=== PATIENT | male | born 2000 | race African-American/Black ===

== ENCOUNTER 2021-02-06 14:31 | Inpatient (IN) ==
--- NOTE | 2021-02-06 15:03 | Emergency Department Note ---
Impression & Plan Pneumothorax on right ED Provider Note CHIEF COMPLAINT: Right-sided chest pain, shortness of breath HISTORY OF PRESENTING ILLNESS: This is a 21-year-old male who presents to the emergency department by private vehicle with complaint of right-sided chest pain and shortness of breath that started this morning when he woke up. The patient states he felt a sharp pain in the side of his chest and then felt like it was hard to take a deep breath. He rates his pain 4/10. He has not tried anything for his symptoms. He continues to feel like there is difficulty taking a full deep breath and he has been taking shallow breaths because of this. He denies any injury to his chest and denies any falls. The patient states that he went to [facility] and they did a chest x-ray and told him that he might have a pneumothorax or a pleural effusion and sent him here for further evaluation. He denies any fevers or chills and denies any URI symptoms of cough, congestion, sore throat, or loss of taste/smell. He is vaccinated for COVID-19. He denies any known sick contacts. 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 He denies any long-term effects of this. He also notes that he smokes and vapes nicotine and marijuana on a regular basis. REVIEW OF SYSTEMS: A complete 10 point review of systems was reviewed with the patient with pertinent positives and negatives as per history of present illness. All else were negative. PAST MEDICAL HISTORY: Born premature, NICU stay, no significant medical problems or past surgical history SOCIAL HISTORY: Lives at home, he is a current everyday smoker cigarettes and vaping ALLERGIES: Reviewed in chart and with the patient PHYSICAL EXAM: CONSTITUTIONAL: Pleasant and cooperative. Nontoxic-appearing and in no acute distress. Well appearing and well nourished. HEENT: Normocephalic, atraumatic. NECK: Supple, full active range of motion without discomfort. No cervical adenopathy. RESPIRATORY: Lung sounds slightly diminished on the right compared to left, but otherwise clear to auscultation bilaterally with no wheezing, crackles, rhonchi or stridor. No tachypnea or labored breathing. No accessory muscle use. Equal expansion bilaterally. CARDIOVASCULAR: Regular rate and rhythm with no murmurs, rubs or gallops. Normal peripheral perfusion. No edema. GASTROINTESTINAL: Soft, nontender, nondistended. No palpable masses or HSM. Bowel sounds present in all quadrants. MUSCULOSKELETAL: Full range of motion of all joints without discomfort. INTEGUMENTARY: No rash or other significant dermatologic conditions noted. NEUROLOGIC: Alert and oriented X 4 with normal affect. Normal strength and sensation in all four extremities. Normal speech. Normal gait observed. ED COURSE AND MEDICAL DECISION MAKING: CC: Patient presenting with complaint of right-sided chest pain, shortness of breath DIFFERENTIAL DIAGNOSIS: Includes, but not limited to pneumothorax, bronchitis, pneumonia, pleural effusion pulmonary embolism, acute coronary syndrome, pericarditis, myocarditis, viral illness, among others. INTERPRETATION OF LABS: No leukocytosis, no anemia, normal platelets, no significant electrolyte abnormalities, normal renal function, normal liver enzymes and lipase. Troponin undetectable. COVID-19 testing negative. IMAGING: A 2 view chest x-ray was reviewed by myself and shows a moderate to large right- sided pneumothorax which measures about 3 cm of separation by my interpretation. EKG: Shows normal sinus rhythm with a rate of 70 bpm, sinus arrhythmia, early repolarization changes, no ST elevation or depression and no ectopy by my interpretation. No previous EKGs available for comparison. MEDICATION RECONCILIATION: I attest that I have personally reviewed the patient's current medication list. INITIAL VITAL SIGNS REVIEW: I reviewed the patient's initial vital signs and interpret them as follows: T: Afebrile; BP: Normotensive; HR: Within normal limits; RR: Within normal limits; Pulse Ox: Within normal limits on room air. MDM SUMMARY: Patient was evaluated in the waiting room due to large number of ED holds and long wait times. A history and physical exam performed. Patient is alert and oriented, in no acute distress, nonlabored breathing, and noted to have good oxygen saturation on room air on initial vitals. He is resting calmly in a chair. The patient was reported to have a possible pneumothorax or pleural effusion on an outside chest x-ray. Orders were placed for labs including a troponin, and EKG and a repeat chest x- ray. The patient declines anything for pain at this time. Chest x-ray was reviewed by myself, noting a moderate to large sized pneumothorax on the right. Nasal cannula oxygen was ordered for the patient while he is still in the waiting room and I spoke with the charge nurse to facilitate bringing the patient back to an exam room as soon as possible. Patient remains stable on recheck in the waiting room. Patient discussed with Dr. Guzmán, who agrees with my assessment, plan, and disposition. Labs reviewed, no acute abnormalities. Troponin negative. The patient was brought back to room D5 and placed on the cardiac/vascular sonographer. He was also placed on a nonrebreather mask. Cardiac monitoring: An order was placed for continuous cardiac monitoring. The monitor shows a rate of 80 bpm with normal sinus rhythm. Oxygen saturation remains good. I spoke on the phone with Dr. Patel, pulmonology, who recommended admitting the patient to the medicine service on telemetry and they will evaluate the patient for pigtail procedure for the pneumothorax. Spoke on the phone with Dr. Gurrola, [facility] Hospitalist, who agrees to evaluate the patient for admission. At the patient's request, I spoke on the phone with the patient's mother, Yaritza, and answered all of her questions at this time. Covid testing is negative. The pulmonology team is at bedside for pigtail placement. The patient was stable at the time of admission. CRITICAL CARE NOTE: I have personally spent greater than 35 minutes of critical care time in the direct management of this patient. This includes bedside care, interpretation of diagnostic studies, and testing, discussion with consultants, patient, and family members, and other required patient management activities. This 35 minutes is in excess of all separately billable procedures. The chart was completed utilizing [employer] voice recognition software. Grammatical errors, random word insertions, pronoun errors, and incomplete sentences are an occasional consequence of this system due to software limitations, ambient noise, and hardware issues. Any formal questions or concerns about the content, text, or information contained within the body of this dictation should be directly addressed to the nurse practitioner for clarification. Past Med/Surg History Medical History Concern about sexually transmitted disease in male without diagnosis Dysuria History of chlamydia infection History of tobacco use Marijuana use Surgical History History of nephrectomy Social History Smoking Status: Current every day smoker Tobacco Type: Cigarettes and E-cigarettes / Vaping Preferred Language: Uzbek Feels Safe at Home: Yes Allergies Allergies Allergy/AdvReac Type Severity Reaction Status Date / Time shellfish derived Allergy Severe hives, Verified 02/06/21 16:16 throat swelling Home Meds Home Medications Medication Instructions Recorded Confirmed No Known Home Medications 02/06/21 02/06/21 Results & Data (ED) Vital Signs Vital Signs - 24 hr 02/06/21 14:31 02/06/21 16:30 02/06/21 16:48 Temperature 36.8 C Temperature Source Temporal Artery Scan Pulse Rate 83 Pulse Rate [Left Finger] 70 Pulse Rhythm [Left Finger] Pulse Strength [Left Finger] Respiratory Rate 18 18 Respiratory Effort / Characteristics Respiratory Depth Blood Pressure 116/68 Blood Pressure [Left Arm] 116/75 Blood Pressure Mean 84 Blood Pressure Mean [Left Arm] 88 Blood Pressure Position [Left Arm] Pulse Oximetry 97 100 100 Oxygen Delivery Method Room Air Non-rebreather Nasal Cannula Oxygen Flow Rate 10 4 Sepsis Recent Fever Within 48 Hours No Sepsis New/Unexplained Change in Mental Status No Sepsis Action Taken by Nursing No Action Required 02/06/21 16:49 02/06/21 17:29 Temperature Temperature Source Pulse Rate Pulse Rate [Left Finger] 72 68 Pulse Rhythm [Left Finger] Regular Pulse Strength [Left Finger] Normal Respiratory Rate 18 18 Respiratory Effort / Characteristics Non-Labored Spontaneous Respiratory Depth Normal Blood Pressure Blood Pressure [Left Arm] 111/74 116/79 Blood Pressure Mean Blood Pressure Mean [Left Arm] 86 91 Blood Pressure Position [Left Arm] Lying Pulse Oximetry 100 100 Oxygen Delivery Method Nasal Cannula Non-rebreather Oxygen Flow Rate 4 Sepsis Recent Fever Within 48 Hours Sepsis New/Unexplained Change in Mental Status Sepsis Action Taken by Nursing Laboratory Data Result diagrams: 02/06/21 Unknown 02/06/21 Unknown Lab Results 02/06/21 02/06/21 02/06/21 Range/Units 16:19 Unknown Unknown WBC 8.98 (4.8-10.8) K/uL RBC 5.46 (4.7-6.1) M/uL Hgb 17.8 (14.0-18.0) g/dL Hct 51.6 (42-52) % MCV 94.5 (80-100) fL MCH 32.6 (25-34) pg MCHC 34.5 (32-36) g/dL RDW Std Deviation 42.5 (36.4-46.3) fL RDW Coeff of Emilie 12.4 (11.5-14.5) % Plt Count 190 (130-400) K/uL MPV 11.1 H (7.4-10.4) fL Immature Gran % (Auto) 0.1 % Neut % (Auto) 87.1 % Lymph % (Auto) 7.7 % [place] % (Auto) 4.2 % Eos % (Auto) 0.9 % Baso % (Auto) 0.0 % Neut # (Auto) 7.82 H (1.4-6.5) K/uL Lymph # (Auto) 0.69 L (1.2-3.4) K/uL [place] # (Auto) 0.38 (0.11-0.59) K/uL Eos # (Auto) 0.08 (0-0.5) K/uL Baso # (Auto) 0.00 (0-0.2) K/uL Immature Gran # (Auto) 0.01 (0.00-0.02) K/uL APTT Cancelled PTT Ratio Cancelled Sodium (136-145) mmol/L Potassium (3.5-5.1) mmol/L Chloride (98-107) mmol/L Carbon Dioxide (21-32) mmol/L Anion Gap (3-11) BUN (7-18) mg/dl Creatinine (0.6-1.4) mg/dl Est Cr Clr Drug Dosing ml/min Est GFR ( Amer) ml/min Est GFR (Non-Af Amer) ml/min BUN/Creatinine Ratio (10-20) Glucose (70-99) mg/dl Calcium (8.5-10.1) mg/dl Total Bilirubin (0.2-1) mg/dl AST (15-37) U/L ALT (12-78) Alkaline Phosphatase (45-117) U/L Troponin I (0-0.045) ng/ml Total Protein (6.4-8.2) gm/dl Albumin (3.4-5.0) gm/dl Globulin (2.5-4.0) gm/dl Albumin/Globulin Ratio (0.9-2) Lipase (73-393) U/L Specimen Hemolysis SARS-CoV-2, RNA, NAAT NEGATIVE (NEGATIVE) 02/06/21 Range/Units Unknown WBC (4.8-10.8) K/uL RBC (4.7-6.1) M/uL Hgb (14.0-18.0) g/dL Hct (42-52) % MCV (80-100) fL MCH (25-34) pg MCHC (32-36) g/dL RDW Std Deviation (36.4-46.3) fL RDW Coeff of Emilie (11.5-14.5) % Plt Count (130-400) K/uL MPV (7.4-10.4) fL Immature Gran % (Auto) % Neut % (Auto) % Lymph % (Auto) % [place] % (Auto) % Eos % (Auto) % Baso % (Auto) % Neut # (Auto) (1.4-6.5) K/uL Lymph # (Auto) (1.2-3.4) K/uL [place] # (Auto) (0.11-0.59) K/uL Eos # (Auto) (0-0.5) K/uL Baso # (Auto) (0-0.2) K/uL Immature Gran # (Auto) (0.00-0.02) K/uL APTT PTT Ratio Sodium 138 (136-145) mmol/L Potassium 3.9 (3.5-5.1) mmol/L Chloride 106 (98-107) mmol/L Carbon Dioxide 28 (21-32) mmol/L Anion Gap 4.0 (3-11) BUN 14 (7-18) mg/dl Creatinine 1.04 (0.6-1.4) mg/dl Est Cr Clr Drug Dosing 106.9 ml/min Est GFR ( Amer) 116.7 ml/min Est GFR (Non-Af Amer) 100.7 ml/min BUN/Creatinine Ratio 13.6 (10-20) Glucose 88 (70-99) mg/dl Calcium 8.9 (8.5-10.1) mg/dl Total Bilirubin 0.6 (0.2-1) mg/dl AST 14 L (15-37) U/L ALT 20 (12-78) Alkaline Phosphatase 45 (45-117) U/L Troponin I < 0.015 (0-0.045) ng/ml Total Protein 7.8 (6.4-8.2) gm/dl Albumin 3.9 (3.4-5.0) gm/dl Globulin 3.9 (2.5-4.0) gm/dl Albumin/Globulin Ratio 1.0 (0.9-2) Lipase 56 L (73-393) U/L Specimen Hemolysis SARS-CoV-2, RNA, NAAT (NEGATIVE) Imaging Data Radiologist's Impression: Chest X-Ray 02/06/21 14:52 XR chest 2V PA/lateral CLINICAL HISTORY: Chest Pain, possible pneumothorax or effusion TECHNIQUE: AP and lateral frontal radiograph of the chest was obtained. Comparison: None available at the time of this dictation. FINDINGS: No lines and tubes are seen. The cardiomediastinal silhouette is normal. The lungs are clear. No evidence of pleural effusion or pneumothorax. IMPRESSION: No acute chest disease. ACT 112: Negative or not required by law. Electronically signed by: Balwinder Schulz M.D. 02/06/2021 3:28 PM Chest X-Ray 02/06/21 17:25 XR chest 1V portable CLINICAL HISTORY: post thoravent TECHNIQUE: Single frontal radiograph of the chest was obtained. Comparison: Comparison is made to chest 2 views 02/06/2021 FINDINGS: Interval placement of a pleural drain in the upper mid chest. The cardiomediastinal silhouette is normal. The right pneumothorax is minimally decreased from prior exam. No evidence of pleural effusion or pneumothorax. IMPRESSION: Small right pneumothorax is minimally decreased from prior exam. An oval placement of pleural drain. ACT 112: Negative or not required by law. Electronically signed by: Balwinder Schulz M.D. 02/06/2021 5:55 PM Discharge Plan Visit Data Chief Complaint: Chest/Rib Injury Stated Complaint: SOB ED Provider: Ezio Guzmán ED Midlevel Provider: Saadia Can Discharge Problem: Pneumothorax on right Patient Disposition: Admitted As Inpatient Condition: Good Forms Stand Alone Forms: [email or web address] Prescriptions Prescriptions: No Action No Known Home Medications RF: 0 Referrals Referrals: PCP,NO [Primary Care Provider] -
--- NOTE | 2021-02-06 15:30 | XRay Report ---
XR chest 2V PA/lateral CLINICAL HISTORY: Chest Pain, possible pneumothorax or effusion TECHNIQUE: AP and lateral frontal radiograph of the chest was obtained. Comparison: None available at the time of this dictation. FINDINGS: No lines and tubes are seen. The cardiomediastinal silhouette is normal. The lungs are clear. No evid ence of pleural effusion or pneumothorax. IMPRESSION: No acute chest disease. ACT 112: Negative or not required by law. Electronically signed by: Balwinder Schulz M.D. 02/06/2021 3:28 PM
[2021-02-06 15:39] LABS: Eosinophils # (auto) 0.08 K/uL (0-0.5); Eosinophils % (auto) 0.9 %; Hematocrit (blood only) 51.6 % (42-52); Hemoglobin 17.8 g/dL (14.0-18.0); Immature Granulocytes # (auto) 0.01 K/uL (0.00-0.02); Immature Granulocytes % (auto) 0.1 %; Lymphocytes # (auto) 0.69 K/uL (1.2-3.4); Lymphocytes % (auto) 7.7 %; Mean Corpuscular Hemoglobin 32.6 pg (25-34); Mean Corpuscular Hgb Conc 34.5 g/dL (32-36); Mean Corpuscular Volume 94.5 fL (80-100); Mean Platelet Volume 11.1 fL (7.4-10.4); Monocytes # (auto) 0.38 K/uL (0.11-0.59); Monocytes % (auto) 4.2 %; Neutrophils # (auto) 7.82 K/uL (1.4-6.5); Neutrophils % (auto) 87.1 %; Platelet Count 190 K/uL (130-400); RDW Coefficient of Variation 12.4 % (11.5-14.5); RDW Standard Deviation 42.5 fL (36.4-46.3); Red Blood Count 5.46 M/uL (4.7-6.1); White Blood Count 8.98 K/uL (4.8-10.8)
--- NOTE | 2021-02-06 16:08 | History & Physical Report ---
Date of Service February 06, 2021 Assessment & Plan (1) Pneumothorax on right: Plan: Spontaneous Increased risk with vaping and smoking marijuana 15LPM O2 non-rebreather mask Consult pulmonology to consider pigtail catheter / chest tube admit to med/tele Plan: VTE Prophylaxis - Low risk Diet - regular Disposition - admit to med/tele Admission and Anticipated Discharge Date Admission Date: February 06, 2021 History of Present Illness Chief Complaint: Chest pain Primary Care Provider: NO PCP Wilver Tillman is a 21 year old male who presents to the ER with chest pain. Started this morning when he woke up and started having right sided pain worse on inspiration. This has been persistent throughout the day therefore decided to come to the ER. No history of prior pneumothorax. He does report vaping and smoking marijuana. In the ER CXR showed a 3cm right sided pneumothorax with no tracheal deviation. Pulmonology have been consulted and recommend admission to a monitored bed for pigtail catheter insertion. Allergies Allergy/AdvReac Type Severity Reaction Status Date / Time shellfish derived Allergy Severe hives, Verified 02/06/21 16:16 throat swelling Home Medications Medication Instructions Recorded Confirmed Type No Known Home Medications 02/06/21 02/06/21 History Past Med/Surg History Medical History Concern about sexually transmitted disease in male without diagnosis Dysuria History of chlamydia infection History of tobacco use Marijuana use Surgical History History of nephrectomy Social History Smoking Status: Never smoker Tobacco Type: Cigarettes and E-cigarettes / Vaping Second Hand Exposure: No; Do You Dip or Chew Tobacco: No; Tobacco Cessation Education Requested by Patient: No Hx Alcohol Use: No Preferred Language: Khmer Communication Ability: Effective Financial Quantitative Analyst Required: No Beliefs That Will Affect Care: None Current Living Situation: Family Other Information That Helps Us Care for You: No Feels Safe at Home: No Is there a partner from a previous relationship who is making you feel unsafe now?: No Any Concerns about Your Family Situation: No Would You Like to Speak to Someone About Your Situation: No Safety Concerns: Feels Safe At This Time Assistive Devices: None Review of Systems Review of Systems: All systems reviewed & are unremarkable except as noted in HPI & below Physical Exam Constitutional: WD/WN, vitals as above Eyes: + anicteric sclerae; normal pupil size Neck: trachea midline, no thyromegaly Respiratory: normal respiratory effort Auscultation: + diminished lung sounds (right apex but not absent) Cardiovascular: RRR, no murmur, no edema Gastrointestinal (Abdomen): normal bowel sounds, soft, nontender, no hepatosplenomegaly Musculoskeletal: no cyanosis or clubbing, extremities motor strength 5/5 Skin: no rashes, warm and dry Neurologic: moves all extremities and awake; not confused Psychiatric: A+Ox3, euthymic affect Results & Data Results & Data ([facility]) Vital Signs (Past 12 Hours) Vital Signs Temp Pulse Resp BP Pulse Ox 02/06/21 14:31 36.8 C 83 18 116/68 97 Laboratory Results Abnormal lab results 02/06/21 02/06/21 Range/Units Unknown Unknown MPV 11.1 H (7.4-10.4) fL Neut # (Auto) 7.82 H (1.4-6.5) K/uL Lymph # (Auto) 0.69 L (1.2-3.4) K/uL AST 14 L (15-37) U/L Lipase 56 L (73-393) U/L Diagnostic Findings CXR: 3cm right sided pneumothorax present Medications Administered ER Medications Given: None ECG Indication: chest pain Rate (beats per minute): 70 Rhythm: sinus with SA Findings: + other (early repolarization seen) Comparison ECG Date: no prior available Code Status & VTE Plan Code Status Full VTE Prophylaxis Plan VTE Prophylaxis will be ordered: No Reason for no VTE drug order: Treatment not indicated Reason for no VTE mechanical prophylaxis: Treatment not indicated PG Care Time/CCT Total # of Minutes Spent Total Time Spent with Patient: Total time spent is greater than 50% in coordination of care (as documented) at patient's floor/unit and/or counseling patient: Coding Level of Care Code 38503 Initial Inpt Care Lvl 2 Diagnoses Pneumothorax on right J93.9
[2021-02-06 16:23] LABS: Alanine Aminotransferase 20 (12-78); Albumin Level 3.9 gm/dl (3.4-5.0); Alkaline Phosphatase 45 U/L (45-117); Aspartate Aminotransferase 14 U/L (15-37); BUN Creatinine Ratio 13.6 (10-20); Bilirubin,Total 0.6 mg/dl (0.2-1); Blood Urea Nitrogen 14 mg/dl (7-18); Calcium 8.9 mg/dl (8.5-10.1); Carbon Dioxide 28 mmol/L (21-32); Chloride 106 mmol/L (98-107); Creatinine Clr Calc Pharmacy 106.9 ml/min; Est GFR (African American) 116.7 ml/min; Est GFR (Non-African American) 100.7 ml/min; Globulin 3.9 gm/dl (2.5-4.0); Glucose 88 mg/dl (70-99); Lipase 56 U/L (73-393); Potassium 3.9 mmol/L (3.5-5.1); Sodium 138 mmol/L (136-145); Total Protein 7.8 gm/dl (6.4-8.2); Troponin I < 0.015 ng/ml (0-0.045)
[2021-02-06] MEDS ORDERED: XYLOCAINE 1%/SOD BICARB 20 ML VIAL INFIL ONE (17:14)
--- NOTE | 2021-02-06 17:21 | Pulmonary Consultation ---
Date of Consultation February 06, 2021 Assessment & Plan (1) History of tobacco use: (2) Marijuana use: (3) Pneumothorax on right: Attending: Dr. Patel Impression: This is a 21-year-old -Citizen Of The [place] male with a benign past medical history. He is an everyday user of nicotine products alternating between cigarettes and vaping. Patient also uses marijuana on a regular basis. He had been smoking marijuana within the last 24 hours. He awoke with chest pain and presented the emergency department for evaluation. Chest x-ray was performed. No pneumothorax was identified. However on personal examination there is a moderate right pneumothorax. There is no evidence of tension pneu mothorax. Patient would benefit from chest tube on the right side to avoid tension pneumothorax. Recommendations: 1. Right spontaneous pneumothorax: * Spontaneous pneumothorax identified on chest x-ray * Consent was obtained at the direction of Dr. Patel and Dr. Tapia * I personally saw the patient and obtained the consent and was relieved by Dr. Tapia who will do the procedure and place a chest tube. * Patient aware that marijuana use is most likely the contributing factor to this pneumothorax and advised to abstain * Repeat chest x-ray in the morning * Continue with supplemental oxygen with nonrebreather. Although patient is not hypoxic, this is prescribed treatment for pneumothorax 2. Nicotine dependence: * Patient started smoking at age 14 and recently converted from cigarettes to vaping * Dangers of vaping as well as nicotine use discussed with patient * Encourage complete abstention of tobacco products, nicotine-containing products, vaporized products 3. Marijuana use: * Patient reports that his not have a medical marijuana card * Uses recreational * Discussed risks of marijuana use and recommended abstention 4. DVT prophylaxis: * Would avoid chemical prophylaxis * Encourage patient to ambulate even with chest tube in place Thank you for including us in the care of this patient. We will continue to follow along with you. Dr. Patel will manage the chest tube tomorrow. Please feel free to call with any other concerns or questions. Supervising Physician Co-Signing Physician Notes I saw and evaluated the patient with Bubba Denis, and agree with findings and plan as documented in the note. Patient seen and examined at bedside. No acute distress Patient came with spontaneous pneumothorax Denies any history of trauma. He does smoke a couple cigarettes here and there and is vaping. Denies any significant coughing or retching. He does have history of premature and spontaneous pneumothoraces as a . Never had surgery instilled in the past Patient will need to have chest tube placed in on the right side Please note the above document was generated using voice recognition software. It may contain grammatical, syntax or spelling errors.Any formal questions or c oncerns about the content, text or information contained within the body of this dictation should be directly addressed to the provider for clarification. History of Present Illness Reason for Consultation: Spontaneous pneumothorax History of Present Illness Attending: Dr. Patel This is a 21-year-old -Citizen Of [place] male who presents with a 1 day history of chest pain. He has no significant past medical history. He has had no surgeries in the past. He does smoke tobacco and vapes and smokes marijuana on a regular basis. Patient reports that he awoke this morning and had a sensation of chest pain on his right side. He came to the emergency department and chest x-ray was performed and patient was found to have spontaneous pneumothorax. Patient denies any trauma. He has no prior history of pneumothorax. He has no prior history of chest tube. The patient denies any family history of pneumothorax. He is unaware of any other situations with his family stimulus. 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 No other health conditions that he is aware of. Patient currently denies any chest pain. He has no shortness of breath. He has no chronic cough. He has no fever or chills. He has no other acute complaints at this time. Patient reports that he is unvaccinated. He has no prior history of Covid Patient works at [employer] in [place]. Allergies Allergy/AdvReac Type Severity Reaction Status Date / Time shellfish derived Allergy Severe hives, Verified 02/06/21 16:16 throat swelling Home Medications Medication Instructions Recorded Confirmed Type No Known Home Medications 02/06/21 02/06/21 History Patient History Medical History Concern about sexually transmitted disease in male without diagnosis Dysuria History of chlamydia infection History of tobacco use Marijuana use Surgical History History of nephrectomy Social History Smoking Status: Never smoker Tobacco Type: Cigarettes and E-cigarettes / Vaping Second Hand Exposure: No; Do You Dip or Chew Tobacco: No; Tobacco Cessation Education Requested by Patient: No Hx Alcohol Use: No Preferred Language: Malay Communication Ability: Effective Corporate Communications Manager Required: No Beliefs That Will Affect Care: None Current Living Situation: Family Other Information That Helps Us Care for You: No Feels Safe at Home: Yes Safety Concerns: Feels Safe At This Time Assistive Devices: None Review of Systems Review of Systems: All systems reviewed & are unremarkable except as noted in Subjective Physical Exam Physical Exam: GENERAL : No acute distress EYES: No icterus, gaze conjugate NOSE: No evidence of epistaxis MOUTH: No lesions or candidiasis NECK: Supple LUNGS: CTA B/L, no wheezes, rales or rhonchi. Some crepitus in the posterior field along the right flank HEART: Regular, rate controlled ABDOMEN: Soft, NT, ND, BS Present EXTREMITIES: No LE edema, pedal pulses intact NEURO: A&OX3 Results & Data Results & Data ([facility]) Vital Signs (Past 12 Hours) Vital Signs Temp Pulse Pulse Resp BP BP Pulse Ox 02/06/21 16:49 72 18 111/74 100 02/06/21 16:48 100 02/06/21 16:30 70 18 116/75 100 02/06/21 14:31 36.8 C 83 18 116/68 97 Laboratory Results 02/06/21 Unknown Troponin I < 0.015 02/06/21 Unknown 02/06/21 Unknown Diagnostic Findings Chest X-Ray 02/06/21 14:52 XR chest 2V PA/lateral CLINICAL HISTORY: Chest Pain, possible pneumothorax or effusion TECHNIQUE: AP and lateral frontal radiograph of the chest was obtained. Comparison: None available at the time of this dictation. FINDINGS: No lines and tubes are seen. The cardiomediastinal silhouette is normal. The lungs are clear. No evidence of pleural effusion or pneumothorax. IMPRESSION: No acute chest disease. ACT 112: Negative or not required by law. Electronically signed by: Balwinder Schulz M.D. 02/06/2021 3:28 PM PG Care Time/CCT Total # of Minutes Spent Total Time Spent with Patient: Total time spent is greater than 50% in coordination of care (as documented) at patient's floor/unit and/or counseling patient: Coding Level of Care Code 52275 Inpt Consult Level 3 Diagnoses History of tobacco use Z87.891 Marijuana use F12.90 Pneumothorax on right J93.9 Time Spent (min) 30
--- NOTE | 2021-02-06 17:28 | Procedure Note ---
Procedure Note Date of Service February 06, 2021 Note Procedure Date: noted above Procedure: thoravent insertion Pre-procedure Diagnosis: spontaneous pneumothorax Post-procedure Diagnosis: same as abovw Prior to Procedure: Informed Consent: The risks, benefits, indications, potential complications, and alternatives were explained to the patient's and informed consent obtained. Attending Staff: Jake Tapia DO Resident/Physician Laborer Chemical Processing: Shannan Denis Indications: The patient is a 21-year-old male with Right sided spontaneous pneumothorax The identity of the patient was confirmed and a bedside time out was performed. Description of Procedure: Patient positioned In the supine position, the area was sterilized with ChloraPrep. 5 mL with 1% buffered lidocaine was instilled with care taken to be superior to the third rib in the mid clavicular line. Stab incision was made after anesthesia the Thora vent was then inserted with care, After the red indicator deflected we were in the chest cavity and via Seldinger technique the catheter was advanced to the chest and secured. The area was aspirated. A post procedure chest x-ray was obtained which revealed mild decrease in the area of the pneumothorax. The Thora vent was then attached to the 20 cm negative water suction. Specimen: none Complications: None Estimated blood loss: trace Post procedure chest x-ray has been ordered and reviewed Coding CPT Codes Pulmonary/Thoracic - Pulmonary and Thoracic: 04794 Tube thoracostomy ([id number]) [facility] [place] Procedure Codes (Charges) Pulmonary/Thoracic Procedure 1: Pulmonary and Thoracic: 57780 Tube thoracostomy (right sided)
--- NOTE | 2021-02-06 17:56 | XRay Report ---
XR chest 1V portable CLINICAL HISTORY: post thoravent TECHNIQUE: Single frontal radiograph of the chest was obtained. Comparison: Comparison is made to chest 2 views 02/06/2021 FINDINGS: Interval placement of a pleural drain in the upper mid chest. The cardiomediastinal silhouette is nor mal. The right pneumothorax is minimally decreased from prior exam. No evidence of pleural effusion o r pneumothorax. IMPRESSION: Small right pneumothorax is minimally decreased from prior exam. An oval placement of pleural drain. ACT 112: Negative or not required by law. Electronically signed by: Balwinder Schulz M.D. 02/06/2021 5:55 PM
[2021-02-06 18:52] LABS: Prothrombin Time 10.2 Seconds (9.0-12.0)
[2021-02-06] MEDS ORDERED: ACETAMINOPHEN 325 MG TAB PO PRN (20:04)
[2021-02-06] MEDS ORDERED: oxyCODONE HCL IR 5 MG TAB (IMMEDIATE RELEASE) PO PRN ×2 (20:04)
[2021-02-07 06:35] LABS: Eosinophils # (auto) 0.13 K/uL (0-0.5); Eosinophils % (auto) 1.8 %; Hematocrit (blood only) 47.6 % (42-52); Hemoglobin 16.4 g/dL (14.0-18.0); Immature Granulocytes # (auto) 0.01 K/uL (0.00-0.02); Immature Granulocytes % (auto) 0.1 %; Lymphocytes # (auto) 1.31 K/uL (1.2-3.4); Lymphocytes % (auto) 18.2 %; Mean Corpuscular Hemoglobin 32.5 pg (25-34); Mean Corpuscular Hgb Conc 34.5 g/dL (32-36); Mean Corpuscular Volume 94.3 fL (80-100); Monocytes # (auto) 0.48 K/uL (0.11-0.59); Monocytes % (auto) 6.7 %; Neutrophils # (auto) 5.25 K/uL (1.4-6.5); Neutrophils % (auto) 73.2 %; Platelet Count 179 K/uL (130-400); RDW Coefficient of Variation 12.4 % (11.5-14.5); RDW Standard Deviation 42.3 fL (36.4-46.3); Red Blood Count 5.05 M/uL (4.7-6.1); White Blood Count 7.18 K/uL (4.8-10.8)
[2021-02-07 06:55] LABS: BUN Creatinine Ratio 13.1 (10-20); Calcium 8.8 mg/dl (8.5-10.1); Creatinine Clr Calc Pharmacy 99.5 ml/min; Est GFR (African American) 111.5 ml/min; Est GFR (Non-African American) 96.2 ml/min; Potassium 3.8 mmol/L (3.5-5.1)
--- NOTE | 2021-02-07 08:47 | XRay Report ---
XR chest 1V portable HISTORY: 21 years-old Male PTX right follow-up study in a patient with right-sided pneumothorax COMPARISON: Chest radiograph 02/06/2021 TECHNIQUE: Portable AP view of the chest FINDINGS: Mildly decreased size of the right apical pneumothorax, now with pleural separation of 8 mm, previous ly approximately 2.4 cm. A right-sided pleural drainage catheter distal tip terminates adjacent to th e right lung apex. The cardiomediastinal and hilar silhouettes are within normal limits. The left esdras g is clear. No overt pulmonary edema or focal airspace consolidation. The bones appear grossly intact . IMPRESSION: Subcentimeter right apical pneumothorax has decreased in size from prior. ACT 112: Negative or not required by law. The above report was generated using voice recognition software. It may contain grammatical, syntax o r spelling errors. Electronically signed by: Otoniel William M.D. 02/07/2021 8:46 AM
--- NOTE | 2021-02-07 10:20 | Electrocardiogram Report ---
Test Reason : Blood Pressure : / mmHG Vent. Rate : 070 BPM Atrial Rate : 070 BPM P-R Int : 132 ms QRS Dur : 084 ms QT Int : 364 ms P-R-T Axes : 031 077 066 degrees QTc Int : 393 ms Normal sinus rhythm with sinus arrhythmia Early repolarization Normal ECG No previous ECGs available Confirmed by Vincenzo Pineda ([id number]) on 02/07/2021 10:19:56 AM Referred By: REFERRED SELF Confirmed By:Vincenzo Pineda
--- NOTE | 2021-02-07 13:44 | Pulmonology Progress Note ---
Date of Service February 07, 2021 Assessment & Plan (1) History of tobacco use: (2) Marijuana use: (3) Pneumothorax on right: Plan: Attending: Dr. Patel Impression: This is a 21-year-old -[place] male with a benign past medical history. He is an everyday user of nicotine products alternating between cigarettes and vaping. Patient also uses marijuana on a regular basis. He had been smoking marijuana within the last 24 hours. He awoke with chest pain and presented the emergency department for evaluation. Chest x-ray was performed. No pneumothorax was identified. However on personal examination there is a moderate right pneumothorax. There is no evidence of tension pneumothorax. Right-sided Thora vent thoracostomy apparatus placed by Dr. Nasir beavers yesterday in the emergency department. Patient has done well overnight. Thora vent is now clamped as of 1030 am this morning Recommendations: 1. Right spontaneous pneumothorax: * Spontaneous pneumothorax identified on chest x-ray * Consent was obtained at the direction of Dr. Patel and Dr. Tapia * I personally saw the patient and obtained the consent and was relieved by Dr. Tapia who will do the procedure and place a chest tube. * Patient aware that marijuana use is most likely the contributing factor to this pneumothorax and advised to abstain * Repeat chest x-ray in the morning shows improvement in the pneumothorax. There is now subcentimeter separation. * Continue with supplemental oxygen * The Thora vent tube has been clamped. Repeat chest x-ray at 1400. The patient continues show improvement, will discuss with Dr. Patel about removing Thora vent and discharging patient home 2. Nicotine dependence: * Patient started smoking at age 14 and recently converted from cigarettes to vaping * Dangers of vaping as well as nicotine use discussed with patient * Encourage complete abstention of tobacco products, nicotine-containing products, vaporized products 3. Marijuana use: * Patient reports that his not have a medical marijuana card * Uses recreational * Discussed risks of marijuana use and recommended abstention 4. DVT prophylaxis: * Would avoid chemical prophylaxis * Encourage patient to ambulate even with chest tube in place Thank you for including us in the care of this patient. We will continue to follow along with you. Admission and Anticipated Discharge Date Admission Date: February 06, 2021 Supervising Physician Co-Signing Physician Notes I saw and evaluated the patient with Bubba Denis, and agree with findings and plan as documented in the note. Patient seen and examined at bedside. No acute distress, no adverse events overnight. Patient does complain of tenderness at the site of the chest tube. Denies any pain on taking deep breath. No nausea or vomiting Chest x-ray from today shows decrease in size of the right-sided pneumothorax. There was no air leak appreciated in the Yelena container on coughing. Constitutional: No acute distress HEENT: EOMI, PERRLA Respiratory system: Good air entry bilaterally, no wheeze, rhonchi, no crackles, right-sided anterior Thora vent in place CVS: S1-S2 positive, no murmurs or gallops Abdomen: Soft, nontender, nondistended, positive bowel sounds x4 Extremities: +2 pulses bilaterally radialis/ dorsalis pedis, no cyanosis, no edema Neuro: Awake alert oriented x3 Psych: Normal mood and affect G/U: No Sheldon Patient's chest tube was clamped and repeat chest x-ray was performed which showed increase in size of the pneumothorax I personally spoke with the nurse to reconnect the tube to suction We will monitor by repeating a chest x-ray tomorrow and see how the patient is doing. I have spent more than 50% of this [] minute encounter in counseling and/or coordination of care with patient. Subjective Attending: Dr. Patel There is a 21-year-old -[place] male that presented yesterday with spontaneous pneumothorax. A Thora vent thoracostomy apparatus was placed between the second and third rib in the midclavicular line yesterday by Dr. Tapia. Patient is tolerated this well overnight. He is remained on low intermittent wall suction. Chest x-ray done this morning looked improved. The tube was clamped and patient has no shortness of breath. He does have some irritation at the insertion site from the incision. He denies any fever or chills. He has no shortness of breath. He has no acute complaints at this time. Review of Systems Review of Systems: All systems reviewed & are unremarkable except as noted in Subjective Physical Exam Physical Exam: GENERAL : No acute distress EYES: No icterus, gaze conjugate NOSE: No evidence of epistaxis. Nasal cannula in place MOUTH: No lesions or candidiasis NECK: Supple LUNGS: CTA B/L, no wheezes, rales or rhonchi. No further crepitus is appreciated. Deep inspiration limited secondary to pain at insertion site of Thora vent HEART: Regular, rate controlled ABDOMEN: Soft, NT, ND, BS Present EXTREMITIES: No LE edema, pedal pulses intact NEURO: A&OX3 Results & Data Results & Data ([facility]) Vital Signs (Past 12 Hours) Vital Signs Temp Pulse Pulse Resp BP Pulse Ox 02/07/21 08:40 36.7 C 63 18 121/73 97 02/07/21 08:08 60 02/07/21 06:00 37 C 68 18 117/66 96 02/07/21 02:30 37.0 C 69 18 119/66 97 02/07/21 02:23 66 Laboratory Results 02/07/21 06:21 02/07/21 06:21 Diagnostic Findings Chest X-Ray 02/07/21 08:00 XR chest 1V portable HISTORY: 21 years-old Male PTX right follow-up study in a patient with right- sided pneumothorax COMPARISON: Chest radiograph 02/06/2021 TECHNIQUE: Portable AP view of the chest FINDINGS: Mildly decreased size of the right apical pneumothorax, now with pleural separation of 8 mm, previously approximately 2.4 cm. A right-sided pleural drainage catheter distal tip terminates adjacent to the right lung apex. The cardiomediastinal and hilar silhouettes are within normal limits. The left lung is clear. No overt pulmonary edema or focal airspace consolidation. The bones appear grossly intact. IMPRESSION: Subcentimeter right apical pneumothorax has decreased in size from prior. ACT 112: Negative or not required by law. The above report was generated using voice recognition software. It may contain grammatical, syntax or spelling errors. Electronically signed by: Otoniel William M.D. 02/07/2021 8:46 AM PG Care Time/CCT Total # of Minutes Spent Total Time Spent with Patient: Total time spent is greater than 50% in coordination of care (as documented) at patient's floor/unit and/or counseling patient:30 minutes Coding Level of Care Code 88241 Subseq Hosp Care Lvl 2 Diagnoses History of tobacco use Z87.891 Marijuana use F12.90 Pneumothorax on right J93.9 Time Spent (min) 30
--- NOTE | 2021-02-07 14:33 | XRay Report ---
XR chest 2V PA/lateral CLINICAL HISTORY: Follow-up right-sided pneumothorax. Right-sided chest tube. COMPARISON STUDY: 02/07/2021 TECHNIQUE: 2 views of the chest FINDINGS: Frontal and lateral radiographs of the chest demonstrate the cardiomediastinal silhouette to be withi n normal limits. Compared to the previous examination, there has been interval worsening of right-christy ed pneumothorax. Pleural separation has increased again to 16 mm when compared to 8 mm on the previou s study. The lungs are otherwise clear of alveolar opacities. There is no evidence for effusion bilat erally. There is no evidence for vascular congestion. There is no acute osseous pathology. IMPRESSION: Interval increase in right-sided pneumothorax as described above. ACT 112: Negative or not required by law. Electronically signed by: Huseyin Marcial M.D. 02/07/2021 2:32 PM
--- NOTE | 2021-02-07 18:39 | Hospitalist Progress Note ---
Date of Service February 07, 2021 Assessment & Plan (1) Pneumothorax on right: Plan: s/p Thoravent placement 02/06. Did well overnight. AM cxr with improved Pnx. Suction stopped, chest tube clamped. Unfortunately post-clamp cxr showed enlarging Pnx. Thus, tube placed back to suction. Observe overnight with chest tube to suction. Repeat cxr am. Cont pain meds prn. (2) Marijuana use: Plan: counseled to abstain (3) History of tobacco use: Plan: counseled to abstain Admission and Anticipated Discharge Date Admission Date: February 06, 2021 Subjective patient w/ mild pain at chest tube site however, breathing comfortably with no dyspnea eating fine he understands the gravity of a pneumothorax and the need to abstain from THC, etc moving forward tele overnight wnl Review of Systems Review of Systems: gen - no fever cv - no chest pain pulm - no cough GI - no pain Physical Exam Physical Exam: gen - NAD, WD, WN mouth - MMM neck - no JVD heart - sinus arrhythmia, s1 s2, no murmur lungs - CTA b/l anteriorly and posteriorly chest - chest tube Thoravent in place anterior right chest abd - soft NT ND BS+ ext - no edema, pulses 2+ b/l Results & Data Results & Data ([facility]) Vital Signs (Past 12 Hours) Vital Signs Temp Pulse Pulse Resp BP Pulse Ox 02/07/21 14:24 37.1 C 60 18 113/75 02/07/21 08:40 36.7 C 63 18 121/73 97 02/07/21 08:08 60 Laboratory Results Laboratory Results - last 24 hr 02/06/21 02/07/21 02/07/21 18:39 06:21 06:21 WBC 7.18 RBC 5.05 Hgb 16.4 Hct 47.6 MCV 94.3 MCH 32.5 MCHC 34.5 RDW Std Deviation 42.3 RDW Coeff of Emilie 12.4 Plt Count 179 MPV 11.0 H Immature Gran % (Auto) 0.1 Neut % (Auto) 73.2 Lymph % (Auto) 18.2 Sanders % (Auto) 6.7 Eos % (Auto) 1.8 Baso % (Auto) 0.0 Neut # (Auto) 5.25 Lymph # (Auto) 1.31 Sanders # (Auto) 0.48 Eos # (Auto) 0.13 Baso # (Auto) 0.00 Immature Gran # (Auto) 0.01 PT 10.2 INR 1.0 Sodium 137 Potassium 3.8 Chloride 106 Carbon Dioxide 27 Anion Gap 4.0 BUN 14 Creatinine 1.08 Est Cr Clr Drug Dosing 99.5 Est GFR ( Amer) 111.5 Est GFR (Non-Af Amer) 96.2 BUN/Creatinine Ratio 13.1 Glucose 99 Calcium 8.8 PG Care Time/CCT Total # of Minutes Spent Total Time Spent with Patient: Total time spent is greater than 50% in coordination of care (as documented) at patient's floor/unit and/or counseling patient: Coding Level of Care Code 68566 Subseq Hosp Care Lvl 1 Diagnoses History of tobacco use Z87.891 Marijuana use F12.90 Pneumothorax on right J93.9
--- NOTE | 2021-02-08 09:37 | XRay Report ---
XR chest 1V portable CLINICAL HISTORY: f/u TECHNIQUE: Single frontal radiograph of the chest was obtained. Comparison: Comparison is made to chest 2 views 02/07/2021 FINDINGS: A pleural drainage catheter is again seen. The cardiomediastinal silhouette is normal. The lungs are clear. No visible pneumothorax is seen. IMPRESSION: Interval essential resolution of the previously noted right pneumothorax. Pleural drainage catheter i s in place. ACT 112: Negative or not required by law. Electronically signed by: Balwinder Schulz M.D. 02/08/2021 9:36 AM
--- NOTE | 2021-02-08 14:39 | Pulmonology Progress Note ---
Date of Service February 08, 2021 Assessment & Plan (1) History of tobacco use: (2) Marijuana use: (3) Pneumothorax on right: Plan: -- Right spontaneous pneumothorax: First instance S/p chest tube placement 06/04/2020 No airleak appreciated bedside --Nicotine dependence: Patient started smoking at age 14 and recently converted from cigarettes to vaping Dangers of vaping as well as nicotine use discussed with patient Encourage complete abstention of tobacco products, nicotine-containing products, vaporized products -- Marijuana use: Patient reports that his not have a medical marijuana card Uses recreational Discussed risks of marijuana use and recommended abstention Plan: Chest x-ray from today does not show any signs of pneumothorax I am going to clamp the chest tube and repeat chest x-ray in 4 hours. The repeat chest x-ray does not show pneumothorax we will remove the chest tube and patient will be okay to be discharged home Please note the above document was generated using voice recognition software. It may contain grammatical, syntax or spelling errors.Any formal questions or concerns about the content, text or information contained within the body of this dictation should be directly addressed to the provider for clarification. Admission and Anticipated Discharge Date Admission Date: February 06, 2021 Subjective Patient seen and examined at bedside. No acute distress, no adverse events overnight Patient denies any chest pain No headache, no nausea, no vomiting No shortness of breath. Review of Systems Review of Systems: All systems reviewed & are unremarkable except as noted in Subjective Physical Exam Physical Exam: Constitutional: No acute distress HEENT: EOMI, PERRLA Respiratory system: Good air entry bilaterally, no wheeze, rhonchi, no crackles, right-sided anterior Thora vent in place CVS: S1-S2 positive, no murmurs or gallops Abdomen: Soft, nontender, nondistended, positive bowel sounds x4 Extremities: +2 pulses bilaterally radialis/ dorsalis pedis, no cyanosis, no edema Neuro: Awake alert oriented x3 Psych: Normal mood and affect G/U: No Sheldon Skin: no rashes, warm and dry Lymphatic: no cervical or axillary lymphadenopathy Results & Data Results & Data ([facility]) Vital Signs (Past 12 Hours) Vital Signs Temp Pulse Resp BP Pulse Ox 02/08/21 07:38 37.1 C 59 L 16 112/68 99 02/08/21 03:52 36.5 C 68 16 118/74 98 02/07/21 06:21 02/07/21 06:21 PG Care Time/CCT Total # of Minutes Spent Total Time Spent with Patient: Total time spent is greater than 50% in coordination of care (as documented) at patient's floor/unit and/or counseling patient: Coding Level of Care Code 46600 Subseq Hosp Care Lvl 2 Diagnoses History of tobacco use Z87.891 Marijuana use F12.90 Pneumothorax on right J93.9
--- NOTE | 2021-02-08 15:10 | XRay Report ---
XR chest 1V portable CLINICAL HISTORY: f/u chest tube clamped TECHNIQUE: Single frontal radiograph of the chest was obtained. Comparison: Comparison is made to chest one view 02/08/2021 at 0919 hours FINDINGS: Right chest tube is again seen. The cardiomediastinal silhouette is normal. The lungs are clear. No e vidence of pleural effusion or pneumothorax. IMPRESSION: No evidence of pneumothorax. ACT 112: Negative or not required by law. Electronically signed by: Balwinder Schulz M.D. 02/08/2021 3:09 PM
--- NOTE | 2021-02-08 17:51 | Procedure Note ---
Procedure Note Date of Service February 08, 2021 Note Procedure: Thora VAC removal [facility]: Dr. Monique Patel Consent: Verbal consent obtained Procedure: Under aseptic precautions the Thora VAC was removed on exhalation. The catheter was found to be intact. Patient denied any chest pain or shortness of breath following the removal. The site was dressed with Vaseline gauze and 4 x 4 and dressed with silicone tap Complications: None Blood loss: None Patient was advised not to do any intense activity, not to lift anything heavy for at least 2-3 weeks He cannot go on a flight, go deep diving for at least 14-21 days Please note the above document was generated using voice recognition software. It may contain grammatical, syntax or spelling errors.Any formal questions or concerns about the content, text or information contained within the body of this dictation should be directly addressed to the provider for clarification. Coding CPT Codes Pulmonary/Thoracic - Pulmonary and Thoracic: 55027 Remove lung catheter ([id number]) [facility] [place] Procedure Codes (Charges) Pulmonary/Thoracic Procedure 1: Pulmonary and Thoracic: 81344 Remove lung catheter
--- NOTE | 2021-02-08 18:01 | Discharge Summary ---
Date of Service date of admission - February 06, 2021 date of discharge - February 08, 2021 Admission HPI Per Admitting Provider Wilver Tillman is a 21 year old male who presents to the ER with chest pain. Started this morning when he woke up and started having right sided pain worse on inspiration. This has been persistent throughout the day therefore decided to come to the ER. No history of prior pneumothorax. He does report vaping and smoking marijuana. In the ER CXR showed a 3cm right sided pneumothorax with no tracheal deviation. Pulmonology have been consulted and recommend admission to a monitored bed for pigtail catheter insertion. Principal Diagnosis Right-Sided Pneumothorax s/p chest tube Discharge Exam gen - NAD, WD, WN mouth - MMM neck - no JVD heart - sinus arrhythmia, s1 s2, no murmur lungs - CTA b/l anteriorly and posteriorly chest - chest tube site covered with large dressing abd - soft NT ND BS+ ext - no edema, pulses 2+ b/l Discharge Data Allergies Allergy/AdvReac Type Severity Reaction Status Date / Time shellfish derived Allergy Severe hives, Verified 02/06/21 16:16 throat swelling Consultations Pulmonology - Monique Patel MD Procedures Performed ThoraVent Chest tube - right chest - [facility] Course (1) Pneumothorax on right: Spontaneous pneumothorax on right. Possibly precipitated by use of marijuana. s/p Thoravent chest tube placement 02/06/21. Pneumothorax resolved with such, and the chest tube was removed without incident on 02/08/21. Pneumothorax management was provided by [facility] [place] pulmonary. Patient was counseled to stop all forms of tobacco and marijuana. He will follow-up with Dr Monique Patel in the pulmonary clinic after discharge for surveillance. (2) Marijuana use: counseled to abstain (3) History of tobacco use: counseled to abstain Total Time Total Time Spent Total Time Spent (In Minutes): 20 Discharge Plan Discharge Items Patient Disposition: Home - Self-Care Reason For Visit: RIGHT SIDED PNEUMOTHORAX Discharge Diagnosis: Right sided pneumothorax - resolved with placement of chest tube. Condition on Discharge: Good Activity: As commented below Activity Comment: no strenuous activities until you see Dr Patel; light activities are fine Lifting: No more than 10 pounds Bathing: Keep incision dry Bathing Comment: OK to shower in 24 hours, but leave dressing on during the shower Sexual Activity: Wait until after follow-up appointment Exercise/Sports: Wait until after follow-up appointment Driving/Machine Use: Resume 1 day after discharge Non-emergency contact: Truckload Owner Operator Call non-emergency contact if: you have any medication questions and your symptoms worsen Follow-up/Referrals: Monique Patel MD [Physician] - (see Dr Patel in 7-10 days for your recent pneumothorax ) Diet: Regular Addtl Attending Provider Instructions: Mr Tillman, You were hospitalized for a right-sided pneumothorax. This is when air seeps out of the lung and into the chest cavity. The lung on that side collapses. You received a chest tube by the pulmonary team. This resolved the pneumothorax. Your chest x-rays on 02/08/21 showed the pneumothorax was gone. It is likely that your marijuana use caused the pneumothorax. Please discontinue all marijuana and tobacco usage. Recommendations - 1. OK to shower in 24 hours - but keep the dressing on during the shower. Try to keep the dressing clean/dry. 2. On Wednesday evening ok to remove the dressing. 3. Wednesday please place an Optifoam dressing on the chest tube site. Keep that Optifoam on for about 2 days. On Wednesday you can remove the Optifoam. If it looks like the chest tube site is fully healed you don't need to cover it any longer. However, if the site is still healing, you can place another Optifoam on the site and leave again for 48 hours. Once the site is fully healed you can get the area wet during a shower or bath. 4. No heavy lifting or heavy exertional activities until you see Dr Patel in the pulmonary clinic. 5. Walking, light activities, etc are fine. 6. For any pain/discomfort may use [id number] tylenol - up to 3000mg in 24 hours; OR - ibuprofen 800mg every 6-8 hours as needed for pain. Follow-up - see Dr Patel in 1 week; you will need a repeat chest x-ray then Return to [facility] if - * you experience recurrent chest pain or tightness * you have recurrent shortness of breath * you have fever over 100 degrees * any other concerns Continue to feel better! Happy holidays, Dr Crandall Pending Studies at Discharge: No Stand-Alone Forms: My [facility], Work/School Release, Smoking Cessation Medications and DC Order Prescriptions: No Action No Known Home Medications RF: 0 Discharge Orders: Discharge Order (Routine); Ordered 02/08/21 Ordered By: Robby Leahy/Other Patient Handouts: Pneumothorax (Collapsed Lung) Admission Data Admit Date/Time: 02/06/21 17:30 Attending Provider: Robby Crandall Admit Provider: Nestor Tapia Primary Care Provider: PCP,NO Other Providers: Monique Patel ; Robby Gurrola Other Interventions: Discharge Summary Assessment (RN) Last Done: 02/08/21 18:05 Coding Level of Care Code D/C DAY MANAGEMENT <30 MINS Diagnoses Pneumothorax on right J93.9 Marijuana use F12.90 History of tobacco use Z87.891
== END 2021-02-08 18:35 | disposition home or self-care (01) | DRG 201 ==
LOC: ED 14:31 → EDINP 17:30 → SUATTDRO 17:30 → 2N 20:10 → 3N 02-08 00:42